=== PATIENT | female | born 1990 | race Caucasian/White ===

== ENCOUNTER 2024-09-27 09:27 | Outpatient (REF) | payer MEDICAID, SELFPAY ==
--- OUTSIDE RECORDS SUMMARY | 2024-09-27 11:14 | XMS_ITS | Clinical Summary ---
Author Organization [facility] Address [address] [place] [address] Phone Care Team Providers Care Automotive Tire Worker Name Role Phone Titus Aranda NP Primary Care Provider Social History Tobacco Use Types Packs/Day Years Used Date Smoking Tobacco: Never Assessed Education Answer Date Recorded Are you interested in more education? Not on leon e 05/02/2023 Are you concerned about learning? Not on file 05/02/2023 No 05/02/2023 No 05/02/2023 Digital Access Answer Date Recorded No 05/02/2023 No 05/02/2023 Reliable internet access at home? Not on file 05/02/2023 Device with a working camera? Not on file Comments Unknown Sex and Gender Information Value Date Recorded Sex Assigned at Not on file Legal Sex Female 11:35 AM EST Gender Identity Not on file Sexual Orientation Not on file Plan of Treatment Not on file Medical Devices Not on file Insurance [facility] Care Teams Automotive Tire Worker Relationship Specialty Start Date End Date Titus Aranda NP [address] [place] [address] PCP - General Nurse Practitioner 05/02/23 Additional Source Comments The information contained in this document represents components of the legal health record. It is not the complete legal health record.[facility]
[2024-09-27 11:49] LABS: Calcium 9.8 mg/dL (8.4-10.2); Magnesium 2.2 mg/dL (1.6-2.6)
[2024-09-28 06:58] LABS: Immunoglobulin A 225 mg/dL (47-310)
== END 2024-09-27 09:28 | disposition home or self-care (01) ==
LOC: HO.LAB 09:27
PROVIDERS: PCP Nurse Practitioner Family; Visit Provider Internal Medicine
DX: K90.49 Malabsorption due to intolerance, not elsewhere classified (principal)
CPT/HCPCS: 36415; 82310; 82784; 83735; 84443; 86364; 99202

== ENCOUNTER 2024-09-27 09:27 | Outpatient (AMB) | payer MEDICAID, SELFPAY ==
--- NOTE | 2024-09-27 09:34 | A.OFFVIS_ITS ---
Vital Signs 09/27/24 09:38 Height 5 ft 2 in Weight 130 lb 1.164 oz BMI 23.8 BP 115/78 Blood Pressure Location Lt brachial Position Sitting Pulse 80 Intake Visit Reasons: Constipation and GI issues Intake Note: Latonia presents in the office as a new patient for constipation. CC: She states she has a slow gut motility - she has to take miralax and a walk and sometimes she has a lot of issues with having BM. She states that some of her symptoms may possibly stem from miranda danlos syndrome - she states that it is a suspicion of hers! Shrimp Pond Laborer Required: No Allergies amoxicillin Allergy (Mild, Verified 09/27/24 09:39) Unknown Penicillins (PCN) Allergy (Mild, Verified 09/27/24 09:39) Unknown HPI Comments Details: 34 y.o F with PMH of fibromyalgia, migraine who is here for constipation. Pt reports having sx since she was a teenager. Has 2-3 days before she has a BM. Once she does have a BM they are hard and then progressively get softer. Avoids grains. Vegetarian but takes mostly processed faux meats and faux cheese . Hydration is around 4 cups a day also has 2-3 sodas. Job is sedentary but trying to walk more. When she does walk notices normal BM regimen. Also notices certain foods give her abd cramping and diarrhea, such as peppers and tends to avoid those. [facility] Surgical History (Updated 09/27/24 @ 09:39 by BRIAN Calles) Hx of breast reduction, elective Review of Systems Const All systems reviewed & are unremarkable except as noted in HPI and below Physical Exam Exam Exam: No apparent distress Nonicteric Abdomen soft, nondistended Alert and oriented x3, normal gait Vital Signs: Last Vital Signs Pulse 80 09/27/24 09:38 BP 115/78 09/27/24 09:38 BMI result Body Mass Index 23.8 Assessment & Plan Assessment & Plan (1) Constipation: Code(s): K59.00 - Constipation, unspecified Category: Medical (2) Food intolerance: Code(s): K90.49 - Malabsorption due to intolerance, not elsewhere classified Category: Medical Plan Reviewed with the pt that sx likely 2/2 lack of hydration and fiber in diet + lack of physical activity. Already has normalization of bowel habits by increaseing physcial acitvitiy. Advised increased fluid intake and fiber supplementation. In addition, can take miralax daily or every other day for no BM >3 days. Work up ordered to r.o hypothyroidism, metabolic factors etc. Pt also mentions she is trying to get worked up for Braxton Palmer, reviewed to discuss nurse staff community health referral with her PCP. Follow up 3 months Orders: Orders Transglutaminase IgA Today K59.00 - Constipation, unspecified TSH reflex Free T4 Today K59.00 - Constipation, unspecified Calcium Today K59.00 - Constipation, unspecified Immunoglobulin A Today K59.00 - Constipation, unspecified Magnesium Today K59.00 - Constipation, unspecified Coding Level of Care Code New Pt Level 4 (81104) Diagnoses Constipation K59.00 Food intolerance K90.49
[2024-09-27 09:38] VITALS: BP 115/78; PULSE 80; BMI 23.8
--- OUTSIDE RECORDS SUMMARY | 2024-09-27 09:58 | XMS_ITS | Clinical Summary ---
Author Organization [facility] Address [address] [place] [address] Care Team Providers Care Toby Maker Name Role Phone Unavailable Primary Care Provider Unavailabl e Allergies Active Allergy Reactions Criticality Noted Date Comments Penicillins Hives,Other (See Comments),Rash,Swelling Medium 11/04/2014 Medications Medication Sig Dispensed Refills Start Date End Date Status amitriptyline (ELAVIL) tablet 25 mg Take 1 tablet (25 mg total) by mouth every night at bedtime. 0 09/20/2021 Active amitriptyline (ELAVIL) tablet 50 mg Take 1 tablet (50 mg total) by mouth every night at bedtime. 0 05/06/2022 Active atomoxetine (STRATTERA) 100 MG capsule 0 04/10/2022 Active DULoxetine (CYMBALTA) DR capsule 60 mg Take 1 capsule (60 mg total) by mouth daily. 0 07/22/2021 Active levonorgestrel (MIRENA) 20 MCG/DAY IUD 0 Active Active Problems Problem Noted Date Diagnosed Date Marijuana smoker, episodic 05/28/2022 Urinary tract infection 11/21/2021 Mixed hyperlipidemia 02/08/2021 Fibromyalgia 02/08/2021 Asymptomatic PVCs 02/08/2021 Anxiety with depression 02/08/2021 Family History Medical History Relation Name Comments Bipolar disorder Mother Depression Mother Relation Name Status Comments Mother Social History Tobacco Use Types Packs/Day Years Used Date Smoking Tobacco: Never Smokeless Tobacco: Never Alcohol Use Standard Drinks/Week Comments Yes 1 (1 standard drink = 0.6 oz pur e alcohol) Sex and Gender Information Value Date Recorded Sex Assigned at Not on file Gender Identity Not on file Sexual Orientation Not on file Job Start Date Occupation Industry Not on file Not on file Not on file Last Filed Vital Signs Vital Sign Reading Time Taken Comments Blood Pressure - - Pulse - - Temperature - - Respiratory Rate - - Oxygen Saturation - - Inhaled Oxygen Concentration - - Weight 60.3 kg (133 lb) 05/28/2022 10:18 AM EDT Height 157.5 cm (5' 2 ) 05/28/2022 10:18 AM EDT Body Mass Index 24.33 05/28/2022 10:18 AM EDT Plan of Treatment Health Maintenance Due Date Last Done Comments Hepatitis B Vaccines (1 of 3 - 3-dose series) 1990 Hepatitis C Screening 1990 COVID-19 Vaccine (#1) 1991 Depression Screening 2003 Preventative Health Evaluation 06/14/2009 Cervical Cancer Screening (P ap Smear) 06/14/2012 Influenza Vaccine (#1) 2024 DTap / Tdap / Td (2 - Td or Tdap) 12/26/2030 021 Pneumococcal Vaccine Aged Out No long er eligible based on patient's age to complete this topic RSV Ped < 20 months Aged Out No longe r eligible based on patient's age to complete this topic
--- OUTSIDE RECORDS SUMMARY | 2024-09-27 09:58 | XMS_ITS | Patient Health Record ---
Author Organization [facility] Address [address] [address] [place] [address] Care Team Providers Care Char Filter Operator Helper Name Role Phone Marely Otero Primary Care Provider [phone] Allergies Allergen (clinical drug ingredient) Drug/Non Drug Allergy documented on EMR Reaction Allergy Type Onset Date Status penicillamine penicillamine Unknown Drug Allergy Active amoxicillin amoxicillin Unknown Drug Allergy Act marcellus ampicillin ampicillin Unknown Drug Allergy Activ e adhesive (uncoded) Unknown Allergy A ctive Reason For Referral No Information Medications Medication SIG (Take, Route, Frequency, Duration) Notes Start Date End Date Status Amitriptyline Hydrochloride 25 mg 1 tab(s) orally once a day (at bedtime) for 90 days Active Paragard T 380-A IUD, 1 Active venlafaxine 150 mg 1 cap(s) orally once a day for 90 Active amphetamine-dextroamphetamin e 10 mg 1 tab(s) orally once a day (in the morning) for 30 day(s) 07/03/2020 Active Integra Vitamin B Complex with C and Iron TAKE ONE CAPSULE BY MOUTH EVERY DAY orally once a day for 90 days Active Immunizations Vaccine Route Administration Date Status Comme nts Tdap IM Intramuscular 07/06/2018 Administered FLUCELVAX IM Intramuscular 01/08/2019 Administer ed Influenza (whole) Unknown 12/14/2019 Administered Td (adult) Unknown 03/15/2018 Administered Social History Tobacco Use: Social History Observation Description Date Details (start date - stop date) Never Smoker NA - NA Smoking: Question Answer Notes Are you a: nonsmoker Alcohol Question Answer Notes Did you have a drink contain ing alcohol in the past year? Yes How often did you have six o r more drinks on one occasion in the past year? Less than monthly (1 point) How many drinks did you have on a typical day when you were drinking in the past year? 1 or 2 (0 points) How often did you have a dri nk containing alcohol in the past year? Never (0 points) Problems Problem Type SNOMED Code ICD Code Onset Dates Problem Status W/U Status Risk Notes Problem Anemia due to chronic blood loss (disorder) (297488035) Iron deficiency anemia secondary to blood loss (chronic) (D50.0) Active confirmed Problem Iron deficiency anemia (45480126) Iron deficiency anemia, unspecified (D50.9) Active confirmed Problem Vitamin D deficiency (28449742) Vitamin D deficiency, unspecified (E55.9) Active confirmed Problem Hyperlipidemia (06833348) Hyperlipidemia, unspecified (E78.5) Active confirmed Problem Disorder of plasma protein metabolism (429280678022696) Other disorders of plasma-protein metabolism, 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 confirmed Problem Major depression, single episode (58361268) Major depressive disorder, single episode, unspecified (F32.9) Active confirmed Problem Moderate recurrent major depression (29016671) Major depressive disorder, recurrent, moderate (F33.1) Active confirmed Problem Chronic intractable migraine without aura (281891375506563) Chronic migraine without aura, intractable, without status migrainosus (G43.719) Active confirmed Problem Fibromyalgia (935370551) Fibromyalgia (M79.7) Active confirmed Problem Attention deficit hyperactivity disorder, 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) Attention and concentration deficit (R41.840) Active confirmed Plan Of Treatment Pending Test Test Name Order Date X ray : Spines, lumbosacral 10/02/2017 Urinanalysis 08/16/2017 Urinanalysis 09/02/2017 Ultrasound : Abdomen and Pelvis 09/24/19 Ultrasound : Breast, right 11/29/2017 URINE 08/16/2017 EKG 03/29/2020 EKG 03/15/2020 MRI : Brain with and without contrast Ultrasound : Pelvic, with transvaginal v iews 08/16/2017 MRI : Brain with contrast 03/19/2018 Medical (General) History Medical History History ICD Code chronic pain Fibromyalgia fatigue PVC Surgical History Surgery Date(Month/Year) mass removed from right breast benign 20 10
== END 2024-09-27 10:22 | disposition home or self-care (01) ==
LOC: HO.HGI 09:28
PROVIDERS: PCP Nurse Practitioner Family; Visit Provider Internal Medicine
DX: K59.00 Constipation, unspecified (principal)
CPT/HCPCS: 99204

== ENCOUNTER 2024-12-27 09:34 | Outpatient (AMB) | payer MEDICAID, SELFPAY ==
--- OUTSIDE RECORDS SUMMARY | 2024-11-27 16:00 | XMS_ITS ---
Author Organization [facility] Address [address] [address] [place] [address] Care Team Providers Care Mobile Paramedical Examiner Name Role Phone Branden Marely Primary Care Provider [phone] Migration, Provider Unavailable Unavailable Allergies Allergen (clinical drug ingredient) Drug/Non Drug Allergy documented on EMR Reaction Allergy Type Onset Date Status Adhesive Unknown Allergy Active penicillamine penicillAMINE Unknown Drug Allergy Active ampicillin Ampicillin Unknown Drug Allergy Activ e amoxicillin Amoxicillin Unknown Drug Allergy Act marcellus REASON FOR VISIT [facility] To [facility] Conversion Encounter Medications Medication SIG (Take, Route, Frequency, Duration) Notes Start Date End Date Status Amitriptyline HCl 25 MG 1 tab(s) orally once a day (at bedtime) for 90 days Active Integra 62.5-62.5-40-3 MG TAKE ONE CAPSULE BY MOUTH EVERY DAY orally once a day for 90 days Active PARAGARD T 380-A IUD, 1 *Please review for potential replacement for e-prescription and drug interaction check* Active Venlafaxine HCl ER 150 MG 1 cap(s) orally once a day for 90 Active Amphetamine-Dextroamp hetamine 10 MG 1 tab(s) orally once a day (in the morning) for 30 day(s) 07/03/2020 Active Encounters Encounter Location Date Provider Diagnosis [facility] [address] [address] [place] [address] 11/27/2024 Provider Migration Fibromyalgia M79.7 Assessments Encounter Date Diagnosis (ICD Code) Assessment Notes Treatment Notes Treatment Clinical Notes Section Notes 11/27/2024 Fibromyalgia (ICD-10 - M79.7) Plan Of Treatment Medication Medication Name Sig Start Date Stop Date Notes Amitriptyline HCl 25 MG 1 tab(s) orally once a day (at bedtime) for 90 days Progress Notes * RANDALL MENDIOLADOB:1990 (34 yo F)Acc No.[id number]:11/27/2024 Patient: RANDALL DE JESUS Provider: Starla Rangel :1990 A ge:34 Y S ex:Female Date:11/27/2024 Address:[address] [place] [address] , [facility], [id number] Pcp:Marely Otero Subjective: * Chief Complaints: * 1 . [facility]. * Medical History: * Medications: T aking Integra 62.5-62.5-40-3 MG Capsule TAKE ONE CAPSULE BY MOUTH EVERY DAY orally once a day , Taking PARAGARD T 380-A IUD, 1 , Notes to Pharmacist: *Please review for potential replacement for e-prescription and drug interaction check*, Taking Venlafaxine HCl ER 150 MG Capsule Extended Release 24 Hour 1 cap(s) orally once a day , Taking Amphetamine-Dextroamphetamine 10 MG Tablet 1 tab(s) orally once a day (in the morning) * Allergies: A dhesive, Amoxicillin, penicillAMINE, Ampicillin. Objective: * Vitals: Assessment: * Assessment: 1. F ibromyalgia - M79.7 (Primary) Plan: * Treatment: * Images: Billing Information: * Visit Code: * Procedure Codes: * Electronic signature of Prov ider Migration on 12/27/2024 at 10:56 AM EST Sign off status: Pending * Provider: Starla Rangel Date: Generated for Saleem spencer/Marily/Barney on: 02/27/2024 10:56 AM EST
--- NOTE | 2024-12-27 09:52 | A.OFFVIS_ITS ---
Vital Signs 12/27/24 09:53 Height 5 ft 2 in Weight 132 lb 4.438 oz BMI 24.2 BP 126/88 Blood Pressure Location Lt brachial Position Sitting Pulse 102 H Intake Visit Reasons: 3 mo f/u Intake Note: Latonia presents in the office as a 3 month follow up. CC: She states that she is feeling okay today! Head Cleaning Porter Required: No Allergies amoxicillin Allergy (Mild, Verified 12/27/24 09:53) Unknown Penicillins (PCN) Allergy (Mild, Verified 12/27/24 09:53) Unknown HPI Comments Details: 34 y.o F with PMH of fibromyalgia, migraine who is here for constipation. Pt reports having sx since she was a teenager. Has 2-3 days before she has a BM. Once she does have a BM they are hard and then progressively get softer. Avoids grains. Vegetarian but takes mostly processed faux meats and faux cheese . Hydration is around 4 cups a day also has 2-3 sodas. Job is sedentary but trying to walk more. When she does walk notices normal BM regimen. Also notices certain foods give her abd cramping and diarrhea, such as peppers and tends to avoid those. 12/27/24: Here for follow up. Reports improvement in constipation. 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 Keeping up her hydration. Has 3-4 BMs per week now. Consistency is better. Also seeing her PCP for weakness in lateral digits of hands which has gotten worse after she started her job. She also reports hx of chronic VALERIO and has been on PO supplements. Wonders if IV infusion would be better solution. [facility] Surgical History Hx of breast reduction, elective Review of Systems Const All systems reviewed & are unremarkable except as noted in HPI and below Physical Exam Exam Exam: No apparent distress Nonicteric Abdomen soft, nondistended Alert and oriented x3, normal gait Vital Signs: Last Vital Signs Pulse 102 H 12/27/24 09:53 BP 126/88 12/27/24 09:53 BMI result Body Mass Index 24.2 Assessment & Plan Assessment & Plan (1) Constipation: Code(s): K59.00 - Constipation, unspecified Category: Medical (2) Food intolerance: Code(s): K90.49 - Malabsorption due to intolerance, not elsewhere classified Category: Medical (3) Anemia: Code(s): D64.9 - Anemia, unspecified Category: Medical Plan Overall, reports improvement in constipation symptoms. Has not been able to incorporate fiber due to the texture of the fiber supplement. Encouraged to switch to Benefiber instead, to see if that is better tolerated. In terms of anemia, will check CBC, iron, B12 and folate panel. Will set up for replacement if needed. Follow-up 6 months Orders: Orders IRON PROFILE Today D64.9 - Anemia, unspecified Ferritin Today D64.9 - Anemia, unspecified Vitamin B12 and Folate Today D64.9 - Anemia, unspecified Complete Blood Count Auto Diff Today D64.9 - Anemia, unspecified Coding Level of Care Code Est Pt Level 4 (84673) Diagnoses Constipation K59.00 Food intolerance K90.49 Anemia D64.9
[2024-12-27 09:53] VITALS: BP 126/88; PULSE 102; BMI 24.2
--- OUTSIDE RECORDS SUMMARY | 2024-12-27 10:56 | XMS_ITS | Clinical Summary ---
Author Organization [facility] Address [address] [place] [address] Care Team Providers Care Accounting Methods Analyst Name Role Phone Unavailable Primary Care Provider [...]
--- OUTSIDE RECORDS SUMMARY | 2024-12-27 10:56 | XMS_ITS | Clinical Summary ---
Author Organization [facility] Address [address] [place] [address] Phone Care Team Providers Care Facilities Officer Name Role Phone Titus Aranda SIGNAL CIRCUIT DESIGNER Primary Care Provider Encounters Date Type Department Care Team Description 10/13/2024 2:40 PM EDT - 10/13/2024 11:59 PM EDT Hospital Encounter [facility] [address] [place] [phone] Titus Aranda, MAK Discharge Disposition: Home or Self Care 10/13/2024 Transcribe Orders [facility] [address] [place] [phone] Titus Aranda NP Paresthesia of skin; Migraine without status migrainosus, not intractable, unspecified migraine type; Excessive bleeding in premenopausal period; Depression, unspecified depression type; B12 deficiency 10/13/2024 Transcribe Orders [facility] [address] [place] [phone] Titus Aranda, MAK Paresthesia of skin from Last 3 Months Social History Tobacco Use Types Packs/Day Years [...] on file Medical Devices Not on file Procedures Procedure Name Priority Date/Time Associated Diagnosis Comments VITAMIN B12 Routine 10/13/2024 2:52 PM EDT Paresthesia of skin Migraine without status migrainosus, not intractable, unspecified migraine type Excessive bleeding in premenopausal period Depression, unspecified depression type B12 deficiency FERRITIN Routine 10/13/2024 2:52 PM EDT Paresthesia of skin Migraine without status migrainosus, not intractable, unspecified migraine type Excessive bleeding in premenopausal period Depression, unspecified depression type B12 deficiency CBC AND DIFFERENTIAL Routine 10/13/2024 2:52 PM EDT Paresthesia of skin Migraine without status migrainosus, not intractable, unspecified migraine type Excessive bleeding in premenopausal period Depression, unspecified depression type B12 deficiency VITAMIN B6 Routine 10/13/2024 2:52 PM EDT Paresthesia of skin Migraine without status migrainosus, not intractable, unspecified migraine type Excessive bleeding in premenopausal period Depression, unspecified depression type B12 deficiency from Last 3 Months Results * (ABNORMAL) CBC and differential (10/13/2024 2:52 PM EDT) WBC 3.56(L) 4.00 - 11.00 K/uL [facility] RBC 4.24 4.00 - 5.20 M/uL [facility] HGB 13.0 12.0 - 16.0 g/dL [facility] HCT 37.9 36.0 - 46.0 % [facility] PLT 284 150 - 450 K/uL [facility] MCV 89.4 80.0 - 100.0 fL [facility] MCH 30.7 27.0 - 31.0 pg [facility] MCHC 34.3 32.0 - 36.0 g/dL [facility] RDW 11.9 11.5 - 14.5 % [facility] MPV 10.5 8.4 - 12.0 fL [facility] NRBC 0.00 0.00 /100 WBCs [facility] ABSOLUTE NRBC 0.00 0.00 K/uL [facility] DIFF METHOD Auto [facility] NEUTS 57.7 48.0 - 76.0 % [facility] LYMPHS 35.1 18.0 - 41.0 % [facility] MONOS 5.3 4.0 - 11.0 % [facility] EOS 0.8 0.0 - 5.0 % [facility] BASOS 0.8 0.0 - 1.5 % [facility] Granulocytes, immature (%) 0.3 0.0 - 0.9 % [facility] ABSOLUTE NEUTS 2.05 1.92 - 7.60 K/uL [facility] ABSOLUTE LYMPHS 1.25 0.72 - 4.10 K/uL [facility] ABSOLUTE MONOS 0.19 0.16 - 1.10 K/uL [facility] ABSOLUTE EOS 0.03 0.00 - 0.50 K/uL [facility] ABSOLUTE BASOS 0.03 0.00 - 0.15 K/uL [facility] Granulocytes, immature 0.01 0.00 - 0.09 K/uL [facility] Blood 10/13/2024 2:52 PM EDT 10/13/2024 2:58 PM EDT us Titus Aranda SIGNAL CIRCUIT DESIGNER LAB BLOOD BKR ORDERABLE S Final Result [address] [address] * Vitamin B6 (10/13/2024 2:52 PM EDT) Pathologist [facility] VITAMIN B6 27 5 - 50 mcg/L [facility] [address] Comment: (NOTE) ADDITIONAL INFORMATION This test was developed and its performance characteristics determined by [facility] in a manner consistent with CLIA requirements. This test has not been cleared or approved by the U.S. Food and Drug Administration. Blood 10/13/2024 2:52 PM EDT 10/13/2024 2:58 PM EDT us Titus Rebecca Rosi SIGNAL CIRCUIT DESIGNER LAB BLOOD ORDERABLES Fi nal Result [facility] [address] [place] [address] * Ferritin (10/13/2024 2:52 PM EDT) FERRITIN 17 13 - 150 ug/L [facility] Blood 10/13/2024 2:52 PM EDT 10/13/2024 2:58 PM EDT us Titus Rebecca Rosi SIGNAL CIRCUIT DESIGNER LAB BLOOD BKR ORDERABLE S Final Result Performing Organization Address [facility]/ZIP Co de Phone Number [address] [address] * Vitamin B12 (10/13/2024 2:52 PM EDT) VITAMIN B12 362 232 - 1,245 pg/mL [facility] Blood 10/13/2024 2:52 PM EDT 10/13/2024 2:58 PM EDT us Titus Rebecca Rosi SIGNAL CIRCUIT DESIGNER LAB BLOOD BKR ORDERABLE S Final Result Performing Organization Address [facility]/ZIP Co de Phone Number [address] [address] from Last 3 Months Insurance [facility] Care Teams Facilities Officer Relationship Specialty Start Date End Date Titus Aranda NP [address] [place] [id number] PCP - General Nurse Practitioner 05/02/23 Additional Source Comments The information contained in this document represents components of the legal health record. It is not the complete legal health record.[facility]
--- OUTSIDE RECORDS SUMMARY | 2024-12-27 10:57 | XMS_ITS | Patient Health Record ---
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 Name Role Phone BrandenMarely Primary Care Provider [phone] Migration, Provider Unavailable Unavailable Allergies Allergen (clinical drug ingredient) Drug/Non Drug Allergy documented on EMR Reaction Allergy Type Onset Date Status Adhesive Unknown Allergy Active penicillamine penicillAMINE Unknown Drug Allergy Active ampicillin Ampicillin Unknown Drug Allergy Activ e amoxicillin Amoxicillin Unknown Drug Allergy Act marcellus Reason For Referral No Information Medications Medication [...] the morning) for 30 day(s) 07/03/2020 Active Immunizations Vaccine Route Administration Date Status [...] Anemia due to chronic blood loss (disorder) (554474228) Iron deficiency anemia secondary to blood loss (chronic) (D50.0) Active confirmed Problem Iron deficiency anemia (55863059) Iron deficiency anemia, unspecified (D50.9) Active confirmed Problem Vitamin D deficiency (24204098) Vitamin D deficiency, unspecified (E55.9) Active confirmed Problem Hyperlipidemia (64842058) Hyperlipidemia, unspecified (E78.5) Active confirmed Problem 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, 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 confirmed Problem Major depression, single episode (60064066) Major depressive disorder, single episode, unspecified (F32.9) Active confirmed Problem Moderate recurrent major depression (13679922) Major depressive disorder, recurrent, moderate (F33.1) Active confirmed Problem Chronic intractable migraine without aura (284754760662196) Chronic migraine without aura, intractable, without status migrainosus (G43.719) Active confirmed Problem Fibromyalgia (320839120) Fibromyalgia (M79.7) Active confirmed Problem Attention deficit hyperactivity disorder, 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) Attention and concentration deficit (R41.840) Active confirmed Encounters Encounter Location Date Provider Diagnosis [facility] [address] [address] [place] [id number] 11/27/2024 Provider Migration Fibromyalgia M79.7 Assessments Encounter Date Diagnosis (ICD Code) Assessment Notes Treatment Notes Treatment Clinical Notes Section Notes 11/27/2024 Fibromyalgia (ICD-10 - M79.7) Plan Of Treatment Pending Test Test Name Order Date X ray : Spines, lumbosacral 10/02/2017 Urinanalysis 08/16/2017 Urinanalysis 09/02/2017 Ultrasound : Abdomen and Pelvis 09/24/19 18 Ultrasound : Breast, right 11/29/2017 URINE 08/16/2017 EKG 03/15/2020 EKG 03/29/2020 MRI : Brain with and without contrast Ultrasound : Pelvic, with transvaginal v iews 08/16/2017 MRI : Brain with contrast 03/19/2018 Medical (General) History Medical History History ICD Code chronic pain Fibromyalgia fatigue PVC Surgical History Surgery Date(Month/Year) mass removed from right breast benign 20 10
== END 2024-12-27 10:20 | disposition home or self-care (01) ==
LOC: HO.HGI 09:35
PROVIDERS: PCP Nurse Practitioner Family; Visit Provider Internal Medicine
DX: K90.49 Malabsorption due to intolerance, not elsewhere classified (principal); D64.9 Anemia, unspecified
CPT/HCPCS: 99214

== ENCOUNTER → 2024-12-27 09:34 | Outpatient (BNVA) | payer MEDICAID, SELFPAY | PROVIDERS: PCP Nurse Practitioner Family; Visit Provider Internal Medicine | DX: D64.9 Anemia, unspecified (principal); K90.49 Malabsorption due to intolerance, not elsewhere classified | CPT/HCPCS: 99212 ==